=== PATIENT | female | born 1995 | race Caucasian/White ===

== ENCOUNTER 2018-07-03 06:04 | Inpatient (IN) ==
[2018-07-03] MEDS ORDERED: Metoprolol Tartrate 25 MG Tablet PO SCH (06:45)
[2018-07-03] MEDS ORDERED: Chlorhexidine Gluconate 2% 1 Pack (2 Cloths) TOPICAL SCH (06:45)
[2018-07-03] MEDS ORDERED: ceFAZolin Inj 2,000 MG in Sodium Chlor 0.9% Inj 100 ML IV.SIG SCH (07:00)
[2018-07-03] MEDS ORDERED: Sodium Chlor 0.9% Inj 500 ML IV.SIG SCH (07:00)
[2018-07-03] MEDS ORDERED: Lidocaine 1%/Epinephrine 1:100,000 Inj 20 ML Vial ONE (08:42)
[2018-07-03] MEDS ORDERED: oxyCODONE/Acetaminophen 10/325 Tablet PO PRN (11:09)
[2018-07-03] MEDS ORDERED: Promethazine 25 MG Supp RECTAL PRN (11:09)
[2018-07-03] MEDS ORDERED: Acetaminophen 325 MG Tablet PO PRN (11:09)
[2018-07-03] MEDS ORDERED: Naloxone Inj 0.4 MG/ML Vial IV.PUSH PRN (11:14)
[2018-07-03] MEDS ORDERED: Morphine Inj 4 MG/ML Vial IV.SIG ONE (11:14)
[2018-07-03] MEDS ORDERED: Ketorolac Inj 30 MG/ML (IVP) Vial IV.PUSH SCH (11:15)
--- NOTE | 2018-07-03 11:22 | P.BOP ---
- Preoperative Diagnosis (1) Bilateral dermoid cysts of ovaries - Postoperative Diagnosis (1) Bilateral dermoid cysts of ovaries Date of procedure: 07/03/18 Procedure: exam under anesthesia, peritoneal washings, bilateral ovarian cystectomies via exploratory laparotomy Anesthesia: GETA Surgeon: Coreen Chaudhry MD Director Records Management: Maryann arteaga) Estimated blood loss (mL): 20 IV fluids (mL): 1,800 Urine output (mL): 800 Pathology: other (bilateral ovarian dermaoid capsule and contents in separate specimen containters, peritoneal washings) Condition: stable Disposition: PACU
[2018-07-03] MEDS ORDERED: fentaNYL Citrate Inj 100 MCG/2 ML Ampul ONE (11:31)
[2018-07-03] MEDS ORDERED: *morphine SULFATE 10 MG/ML PERIprocedure ONLY ONE (11:38)
[2018-07-03] MEDS ORDERED: Morphine Inj 30 MG/30 ML PCA.VIAL PCA ONE (11:39)
[2018-07-03] MEDS ORDERED: Phenylephrine/NS 1000 MCG/10ML Syringe IV.PUSH ONE (12:00)
[2018-07-03] MEDS ORDERED: Glycopyrrolate Inj 1 MG/5 ML Syringe IV.PUSH ONE (12:00)
[2018-07-03] MEDS ORDERED: Lidocaine PF 1% Inj 5 ML Syringe INFILTRATN ONE (12:00)
[2018-07-03] MEDS ORDERED: Ketorolac Inj 30 MG/ML (IVP) Vial ONE (12:19)
[2018-07-03] MEDS: Morphine Inj 30 MG/30 ML PCA.VIAL PCA PRN (12:39)
[2018-07-03] MEDS: Ketorolac Inj 30 MG/ML (IVP) Vial IV.PUSH SCH ×2 (12:41→18:34)
--- NOTE | 2018-07-04 00:12 | MP ---
cc: Coreen Chaudhry MD DATE OF OPERATION: 07/03/2018 PREOPERATIVE DIAGNOSIS: Bilateral ovarian teratomas. POSTOPERATIVE DIAGNOSIS: Bilateral ovarian teratomas. PROCEDURE PERFORMED: Exam under anesthesia, exploratory laparotomy, bilateral ovarian cystectomy, peritoneal washing. SURGEON: Coreen Chaudhry MD [employer]AG OPERATOR: Maryann Jones MD ANESTHESIA: General endotracheal anesthesia. INTRAVENOUS FLUIDS: 1800 mL. URINE OUTPUT: 800 mL. ESTIMATED BLOOD LOSS: 20 mL. SPECIMENS: Bilateral dermoid capsules with contents including sebaceous material, hair, cartillagenous material, and peritoneal washings. COMPLICATIONS: None. COUNTS: Correct. ANTIBIOTICS: Ancef 2 grams IV given pre incision. DEEP VENOUS THROMBOSIS PROPHYLAXIS: SCDs to lower extremities. INDICATIONS: The patient is a 22-year-old G0 who presented to the emergency department for abdominal pain. She had CT imaging that noted a 7 cm right ovarian dermoid and a 4 cm left adnexal mass, no true ovarian cortex was identified on imaging. They did not suspect torsion during her ED visit, so she followed up as an outpatient and was scheduled for surgery due to the size and risk of torsion was high. Additionally, they appeared to be classic for dermoids. The patient was aware that these cysts would not resolve on their own. INTRAOPERATIVE FINDINGS: Normal uterus and fallopian tubes. Right ovary with approximately a 7-8 cm cyst. Left ovary with approximately a 5 cm cyst. Once the capsule was entered, hair, sebaceous material, calcific and cartilaginous-appearing material were noted within. PROCEDURE IN DETAIL: After reviewing informed consent, the patient was taken to the operating room, where general anesthesia was performed without complication. She was placed in the dorsal lithotomy position in [facility]. The abdomen and perineum were prepped and draped in normal sterile fashion. A Mohan was placed under sterile conditions. A sponge stick was placed in the vagina to act as a uterine manipulator. Gloves were changed. A Pfannenstiel skin incision was made with a scalpel and carried down to the underlying layer of fascia with the Bovie. The fascia was incised in the midline and this was extended bilaterally with Sahu scissors. Alexa clamps were used to elevate the superior aspect of the fascia. The rectus muscles were dissected off sharply with Sahu scissors as well as bluntly. Perforating vessels were made hemostatic with the Bovie. The same was repeated inferiorly. The rectus muscles are in the midline. The peritoneum was in the midline bluntly. During this, the patient had a bradycardic episode. The procedure was halted. She was given epinephrine and her heart rate recovered quickly with no further issues during the procedure. A self-retaining retractor was placed. The bowel was packed away with moist laparotomy sponges. A bladder blade and superior retractor were placed. The abdomen was inspected. See intraoperative findings. The right cyst was entered with the Bovie. A small incision was made. The cyst was decompressed and the fluid suctioned. Prior to doing this, normal saline was placed in the abdomen and peritoneal washings were collected. After decompressing the ovarian cyst, the incision was extended with the Bovie. All the material was removed from the cyst. The cyst capsule was delicately and meticulously from the ovary. All material was sent to pathology. Copious irrigation was done of the base of the remaining ovarian tissue. The defect of the cyst was brought together with pursestring sutures. Then, the sides of the defect were reapproximated with 2-0 Vicryl in a running fashion. Good hemostasis was noted. Attention was then turned to the left ovary. In a similar fashion, a small incision was made with the Bovie and suction was performed to decompress the cyst of its fluid. The incision was then extended with Metzenbaum scissors. The contents of the cysts were removed. The cystic capsule was from the ovarian tissue. Both specimens from each ovary were sent in separate containers. The defect in the ovary was brought together in a pursestring suture, followed by a running stitch with 2-0 Vicryl. Copious irrigation was performed. The moistened lap sponges were removed from the abdomen. The ovaries were wrapped with Interceed. The self-retaining retractor was removed. The fascia was closed with 0 Vicryl in a running fashion. The subcutaneous tissue was irrigated. Good hemostasis was noted. This layer was closed with 2-0 chromic in a running fashion. The skin was closed with 4-0 Monocryl in a subcuticular fashion. Dermabond was placed. The patient was placed in dorsal supine position. Anesthesia was reversed without complication. She was taken to the PACU under stable condition. REMARK: Cancer markers were all negative prior to the procedure with a negative chest x-ray. MD [facility] Cooper/isatu/abebe , 08:35 PM , 08:48 PM RYAN
[2018-07-04] MEDS: Ketorolac Inj 30 MG/ML (IVP) Vial IV.PUSH SCH ×2 (01:05→06:28)
[2018-07-04] MEDS: Morphine Inj 30 MG/30 ML PCA.VIAL PCA PRN (02:51)
--- NOTE | 2018-07-04 08:36 | P.PNOB ---
Subjective Post op day: 1 Interval history: min ambulation, not voided yet, no flatus. Objective Vital Signs/I&O: Vital Signs 07/03/18 11:24 07/03/18 11:45 07/03/18 12:00 Temperature 98.2 F Pulse Rate 90 86 73 Respiratory Rate 15 14 12 Blood Pressure 117/58 L 122/58 L 121/59 L Pulse Oximetry 99 100 100 07/03/18 12:15 07/03/18 12:30 07/03/18 12:45 Temperature Pulse Rate 94 H 72 70 Respiratory Rate 20 20 18 Blood Pressure 128/68 128/60 120/59 L Pulse Oximetry 99 94 L 95 07/03/18 15:10 07/03/18 18:10 07/03/18 20:00 Temperature 97.8 F 97.7 F Pulse Rate 61 65 Respiratory Rate 17 5 L 16 Blood Pressure 129/57 L 125/55 L Pulse Oximetry 96 97 07/03/18 23:44 07/03/18 23:45 07/04/18 01:00 Temperature 98.3 F Pulse Rate 67 Respiratory Rate 5 L 18 20 Blood Pressure 121/50 L Pulse Oximetry 96 07/04/18 04:15 Temperature 97.8 F Pulse Rate 55 L Respiratory Rate Blood Pressure 122/49 L Pulse Oximetry 95 Intake & Output 07/03/18 07/04/18 07/04/18 18:59 06:59 18:59 Intake Total 2019 / 2020 2200 / 2200 Output Total 1740 / 1740 1525 / 1525 Balance 280 / 280 675 / 675 Intake: IV 1220 / 1220 2200 / 2200 LR 1000 mL Inj 1,000 ML @ 125 2000 / 2000 mls/hr IV.CONT .Q8H [facility] Rx#: [id number] Ofirmev Inj 1,000 mg In 100 ml 100 / 100 200 / 200 @ 400 mls/hr IV.SIG Q6H [facility] Rx# :[id number] LR 1000 mL Inj 1,000 ML @ 30 1000 / 1000 mls/hr IV.SIG .Q24H [facility] Rx#: [id number] Ancef Inj 2,000 MG In NS Inj 120 / 120 100 ML @ 200 mls/hr IV.SIG ROTOR CASTING MACHINE OPERATOR [facility] Rx#:[id number] Anesthesia Amount 800 / 800 Output: Estimated Blood Loss 20 / 20 Urine Amount (Catheter) 1720 / 1720 1525 / 1525 Indwelling Urethral Catheter 1719 1525 / 1525 Other: Date of Last Bowel Movement 07/02/18 Objective Remarks: GENERAL: Well-nourished, well-developed patient. CARDIOVASCULAR: Regular rate and rhythm without murmurs, gallops, or rubs. RESPIRATORY: Breath sounds equal bilaterally. No accessory muscle use. ABDOMEN/GI: Abdomen soft, non-tender, bowel sounds present. Incision: Clean, dry and intact. GENITOURINARY: Light to moderate bleeding. EXTREMITIES: No cyanosis or edema, non-tender, without signs of DVT. scd Medications and IVs: Active Medications Acetaminophen (Tylenol) 650 mg PO Q4H PRN PRN Reason: FEVER > 101 F Chlorhexidine Gluconate (Chlorhexidine 2% Cloth) 3 pack TOPICAL ROTOR CASTING MACHINE OPERATOR [facility] Stop: 07/06/18 06:34 Last Admin: 07/03/18 07:05 Dose: 3 pack Diphenhydramine HCl (Benadryl Inj) 25 mg IV.PUSH Q6H PRN PRN Reason: ITCHING Docusate Sodium (Colace) 100 mg PO Q12H PRN PRN Reason: CONSTIPATION Lactated Ringer's (Lr 1000 Ml Inj) 1,000 mls @ 30 mls/hr IV.SIG .Q24H [facility] Stop: 07/06/18 06:34 Last Infusion: 07/03/18 11:03 Dose: Infused Sodium Chloride (Ns Inj) 500 mls @ 30 mls/hr IV.SIG .Q10H [facility] Stop: 07/06/18 06:34 Lactated Ringer's (Lr 1000 Ml Inj) 1,000 mls @ 125 mls/hr IV.CONT .Q8H [facility] Last Admin: 07/04/18 05:26 Dose: 125 mls/hr Ibuprofen (Motrin) 600 mg PO Q6H PRN PRN Reason: PAIN SCALE 1 TO 2 Metoprolol Tartrate (Lopressor) 25 mg PO ROTOR CASTING MACHINE OPERATOR [facility] Stop: 07/06/18 06:34 Last Admin: 07/03/18 07:05 Dose: Not Given Miscellaneous Information ([facility] Nursing Information) 1 each OTHER UNSCH PRN PRN Reason: SEE LABEL COMMENTS Stop: 07/04/18 11:26 Naloxone HCl (Narcan Inj) 0.4 mg IV.PUSH PRN PRN PRN Reason: Resp rate < 10 Ondansetron HCl (Zofran Odt) 4 mg PO Q6H PRN PRN Reason: NAUSEA OR VOMITING Ondansetron HCl (Zofran Inj) 4 mg IV.PUSH Q6H PRN PRN Reason: NAUSEA OR VOMITING Oxycodone/Acetaminophen (Percocet 10/325 Mg) 1 tab PO Q4H [facility] Povidone Iodine (Betadine 5% Antisepsis Kit) 1 applicatio EACH NARE ROTOR CASTING MACHINE OPERATOR [facility] Stop: 07/06/18 06:34 Last Admin: 07/03/18 07:05 Dose: 1 applicatio Promethazine HCl (Phenergan) 25 mg PO Q6H PRN PRN Reason: NAUSEA OR VOMITING Promethazine HCl (Phenergan Supp) 25 mg RECTAL Q6H PRN PRN Reason: NAUSEA OR VOMITING Sodium Chloride (Ns Flush) 2 ml IV.FLUSH BID [facility] Last Admin: 07/03/18 23:47 Dose: Not Given Sodium Chloride (Ns Flush) 2 ml IV.FLUSH PRN PRN PRN Reason: FLUSH AFTER USING IV ACCESS Assessment and Plan - Diagnosis (1) Bilateral dermoid cysts of ovaries Code(s): D27.0 - Benign neoplasm of right ovary; D27.1 - Benign neoplasm of left ovary Status: Acute - Plan POD 1 euz, bilateral ov cystectomies, peritoneal washings Pt still needs to void, ambulate. Stop ammonia still operator and transition to po percocet Not ready for d/c this am. will re-evaluate in pm
[2018-07-04] MEDS: oxyCODONE/Acetaminophen 10/325 Tablet PO SCH ×4 (09:04→20:51)
[2018-07-04] MEDS: Docusate Sodium 100 MG Capsule PO PRN (13:02)
[2018-07-04] MEDS: Ibuprofen 600 MG Tablet PO PRN (15:44)
[2018-07-04] MEDS ORDERED: Morphine Inj 4 MG/ML Vial IV.PUSH ONE (18:54)
[2018-07-05] MEDS: oxyCODONE/Acetaminophen 10/325 Tablet PO SCH ×2 (01:04→04:51)
[2018-07-05 05:22] VITALS: RESP 18
--- NOTE | 2018-07-05 08:55 | P.PNOB ---
Subjective Post op day: 2 Interval history: pt feeling much better. voided, passing gas. Ambulating Objective Vital Signs/I&O: Vital Signs 07/04/18 09:32 07/04/18 12:56 07/04/18 16:00 Temperature 97.6 F 97.8 F 98.1 F Pulse Rate 54 L 65 66 Respiratory Rate 18 18 16 Blood Pressure 130/63 120/65 115/58 L Pulse Oximetry 97 97 96 07/04/18 20:00 07/05/18 00:00 07/05/18 02:00 Temperature 98.3 F 98.1 F Pulse Rate 65 65 Respiratory Rate 18 18 16 Blood Pressure 109/56 L 113/68 Pulse Oximetry 97 97 07/05/18 04:00 Temperature 98.4 F Pulse Rate 60 Respiratory Rate 18 Blood Pressure 108/60 Pulse Oximetry 97 Intake & Output 07/04/18 07/05/18 07/05/18 18:59 06:59 18:59 Intake Total 1100 / 1100 200 / 200 Output Total 1500 / 1500 Balance 1100 / 1100 -1300 / -1300 Intake: IV 1100 / 1100 LR 1000 mL Inj 1,000 ML @ 125 1000 / 1000 mls/hr IV.CONT .Q8H [facility] Rx#: [id number] Ofirmev Inj 1,000 mg In 100 ml 100 / 100 @ 400 mls/hr IV.SIG Q6H [facility] Rx# :[id number] Oral 200 / 200 Output: Urine 1500 / 1500 Other: Date of Last Bowel Movement 07/02/18 Objective Remarks: GENERAL: Well-nourished, well-developed patient. CARDIOVASCULAR: Regular rate and rhythm without murmurs, gallops, or rubs. RESPIRATORY: Breath sounds equal bilaterally. No accessory muscle use. ABDOMEN/GI: Abdomen soft, non-tender, bowel sounds present. Incision: Clean, dry and intact. small bruising of inferior edge. Fundus: Firm, non-tender at umbilicus. GENITOURINARY: Light to moderate bleeding. EXTREMITIES: No cyanosis or edema, non-tender, without signs of DVT. Medications and IVs: Active Medications Acetaminophen (Tylenol) 650 mg PO Q4H PRN PRN Reason: FEVER > 101 F Chlorhexidine Gluconate (Chlorhexidine 2% Cloth) 3 pack TOPICAL SAFETY ADVISOR [facility] Stop: 07/06/18 06:34 Last Admin: 07/03/18 07:05 Dose: 3 pack Diphenhydramine HCl (Benadryl Inj) 25 mg IV.PUSH Q6H PRN PRN Reason: ITCHING Last Admin: 07/04/18 20:52 Dose: 25 mg Docusate Sodium (Colace) 100 mg PO Q12H PRN PRN Reason: CONSTIPATION Last Admin: 07/04/18 13:02 Dose: 100 mg Lactated Ringer's (Lr 1000 Ml Inj) 1,000 mls @ 30 mls/hr IV.SIG .Q24H [facility] Stop: 07/06/18 06:34 Last Infusion: 07/03/18 11:03 Dose: Infused Sodium Chloride (Ns Inj) 500 mls @ 30 mls/hr IV.SIG .Q10H [facility] Stop: 07/06/18 06:34 Lactated Ringer's (Lr 1000 Ml Inj) 1,000 mls @ 125 mls/hr IV.CONT .Q8H [facility] Last Admin: 07/04/18 22:13 Dose: Not Given Ibuprofen (Motrin) 600 mg PO Q6H PRN PRN Reason: PAIN SCALE 1 TO 2 Last Admin: 07/04/18 15:44 Dose: 600 mg Metoprolol Tartrate (Lopressor) 25 mg PO SAFETY ADVISOR [facility] Stop: 07/06/18 06:34 Last Admin: 07/03/18 07:05 Dose: Not Given Naloxone HCl (Narcan Inj) 0.4 mg IV.PUSH PRN PRN PRN Reason: Resp rate < 10 Ondansetron HCl (Zofran Odt) 4 mg PO Q6H PRN PRN Reason: NAUSEA OR VOMITING Ondansetron HCl (Zofran Inj) 4 mg IV.PUSH Q6H PRN PRN Reason: NAUSEA OR VOMITING Last Admin: 07/04/18 16:51 Dose: 4 mg Oxycodone/Acetaminophen (Percocet 10/325 Mg) 1 tab PO Q4H [facility] Last Admin: 07/05/18 04:51 Dose: 1 tab Povidone Iodine (Betadine 5% Antisepsis Kit) 1 applicatio EACH NARE SAFETY ADVISOR [facility] Stop: 07/06/18 06:34 Last Admin: 07/03/18 07:05 Dose: 1 applicatio Promethazine HCl (Phenergan) 25 mg PO Q6H PRN PRN Reason: NAUSEA OR VOMITING Last Admin: 07/04/18 12:18 Dose: 25 mg Promethazine HCl (Phenergan Supp) 25 mg RECTAL Q6H PRN PRN Reason: NAUSEA OR VOMITING Sodium Chloride (Ns Flush) 2 ml IV.FLUSH BID [facility] Last Admin: 07/04/18 20:53 Dose: 2 ml Sodium Chloride (Ns Flush) 2 ml IV.FLUSH PRN PRN PRN Reason: FLUSH AFTER USING IV ACCESS Assessment and Plan - Diagnosis (1) Bilateral dermoid cysts of ovaries Code(s): D27.0 - Benign neoplasm of right ovary; D27.1 - Benign neoplasm of left ovary Status: Acute - Plan POD 2 eua, bilateral ov cystectomies, peritoneal washings Pt ready for d/c. f/u 1 wk. Wound care and postop care reviewed Discharge Planning: today, dispo home
[2018-07-05 08:58] VITALS: O2SAT 96
[2018-07-05] MEDS ORDERED: oxyCODONE/Acetaminophen 10/325 Tablet PO SCH (10:00)
[2018-07-05] MEDS: Docusate Sodium 100 MG Capsule PO PRN (10:36)
[2018-07-05] MEDS: Ibuprofen 600 MG Tablet PO PRN (10:36)
[2018-07-05 12:17] VITALS: BP 125/69; PULSE 79; TEMP 98.3
== END 2018-07-05 12:27 | disposition home or self-care (01) ==
LOC: HSDC 06:04 → EDSTATUS 08:00 → H1EA 13:08
PROVIDERS: ADMIT Obstetrics & Gynecology; ATTEND Obstetrics & Gynecology